=== PATIENT | female | born 1960 | race Caucasian/White ===

== ENCOUNTER 2022-02-17 06:09 | Day surgery (SDC) | payer MEDICARE, MEDICAID ==
[~2022-02-17] VITALS: Ht 157.5 cm; Wt 102.5 kg
[~2022-02-17 06:09] MED LIST: ASPI-1497 PO; DULO60CA64 PO; HYDR-459 PO; LISI40TA13 PO; METF-874 PO; MONT-39 PO; OMEP20TA23 PO
[2022-02-17] MEDS ORDERED: BUPIVACAINE HCL/PF 0.5% (5MG/ML) 30ML ONE (06:34)
[2022-02-17] MEDS ORDERED: SKIN ADHESIVE 0.7 GM EA TOP ONE (06:34)
[2022-02-17] MEDS ORDERED: ALBUTEROL 6.7GM HFA INHALER ONE (07:40)
[2022-02-17] MEDS ORDERED: LIDOCAINE HCL/EPINEPHRINE 1%-EPI 1:100,000 20 ML VIAL ONE (07:42)
[2022-02-17] MEDS ORDERED: LIDOCAINE HCL 1% 50ML VIAL (10MG/ML) ONE (07:47)
[2022-02-17] MEDS ORDERED: POLYMYXIN B SULFATE 500000 UNITS/VIAL ONE (08:29)
[2022-02-17] MEDS ORDERED: MEPERIDINE HCL/PF 25MG/ML CPJ IV PRN (08:30)
[2022-02-17] MEDS ORDERED: HYDROMORPHONE HCL/PF 2MG/ML CPJ IV PRN (08:30)
[2022-02-17] MEDS ORDERED: LABETALOL 5MG/ML SYR 20 MG/4 ML SYRINGE IV PRN (08:30)
[2022-02-17] MEDS ORDERED: ONDANSETRON HCL 4MG/2ML INJ IV PRN (08:30)
[2022-02-17] MEDS ORDERED: IPRATROPIUM/ALBUTEROL 0.5-3(2.5)MG/3ML NEB HHN PRN (09:15)
[2022-02-17 10:40] VITALS: BP 139/67
== END 2022-02-17 13:10 | disposition home or self-care (01) ==
LOC: OR 06:09
PROVIDERS: ATTEND Specialist
DX: K43.6 Other and unspecified ventral hernia with obstruction, without gangrene (principal); I10 Essential (primary) hypertension; E11.9 Type 2 diabetes mellitus without complications; J45.909 Unspecified asthma, uncomplicated; F32.9 Major depressive disorder, single episode, unspecified; M19.90 Unspecified osteoarthritis, unspecified site; E66.9 Obesity, unspecified; E78.5 Hyperlipidemia, unspecified; Z79.899 Other long term (current) drug therapy; Z98.890 Other specified postprocedural states; Z79.82 Long term (current) use of aspirin; Z79.84 Long term (current) use of oral hypoglycemic drugs; Z90.49 Acquired absence of other specified parts of digestive tract; Z20.822 Contact with and (suspected) exposure to COVID-19
CPT/HCPCS: 49561; 49568; 82962; 87426; 94640; C9803; J0330; J1100; J1170; J2250; J2405; J2704; J2710; J3010; J3490; J7030